=== PATIENT | female | born 2005 | race African-American/Black ===

== ENCOUNTER 2025-03-15 15:23 | Emergency (ER) | payer OTHER, SELFPAY ==
--- NOTE | ~2025-03-15 | CT_ITS ---
CLINICAL HISTORY: pancreatitis CT ABDOMEN AND PELVIS WITH CONTRAST COMPARISON: None provided. FINDINGS: No CT evidence of acute pancreatitis. Gallbladder is unremarkable. No visible stone. No pericholecystic inflammation. Lung bases are unremarkable. Focal fatty infiltration is noted adjacent to the falciform ligament of the liver. No focal liver lesion. Stomach is mildly distended with enteric contents and some gas. Spleen and adrenal glands are unremarkable. Both kidneys are unremarkable. No hydronephrosis or obstructing stone. Urinary bladder is unremarkable. Uterus and adnexa are grossly unremarkable. Small follicles are suspected within the left ovary. Abdominal aorta is normal in caliber without evidence of an aneurysm or dissection. No evidence of a bowel obstruction. No free air. No pericolonic inflammation. Appendix is visualized and there is no evidence of acute appendicitis. Fluid and nonspecific air-fluid levels are noted within nonobstructed portions of mid to distal small bowel and the proximal portions of the colon. No lymphadenopathy. No evidence of a bowel containing hernia. The bone windows demonstrate no acute abnormalities. IMPRESSION: 1. No CT evidence of acute pancreatitis. 2. No evidence of a bowel obstruction or free air. No pericolonic inflammation. No evidence of acute appendicitis. 3. Fluid and nonspecific air-fluid levels are noted within nonobstructed portions of mid to distal small bowel, and the proximal portions of the colon. This can be correlated with patient history/symptoms and laboratory values. 4. Additional findings are detailed above. This document has been electronically signed by: Conrado Strickland M.D. on 03/16/2025 00:08:03
[2025-03-15 16:04] VITALS: BP 104/71; PULSE 96; RESP 18; TEMP 37.3; O2SAT 99; BMI 22.1
--- NOTE | 2025-03-15 16:06 | ED_ITS ---
HPI - Abdominal Pain General Chief Complaint: General Medical Stated Complaint: vomiting,diarrhea/has holter monitor on Time Seen by Provider: 03/15/25 20:48 Source: patient Limitations: no limitations History of Present Illness ED Provider: Tracey Patton PA-C HPI narrative: 19-year-old female presents with nausea vomiting diarrhea x1 day. Associated abdominal cramping. Denies fever, sick contacts with similar symptoms, recent travel, recent hospitalization or use of antibiotics. Patient states she has also been having breakthrough vaginal bleeding, she just started Depo-Provera on January 19. She also states she had a positive test at home. Related Data Previous Rx's ?Medication ?Instructions ?Recorded dicyclomine 20 mg tablet 20 mg PO BID PRN diarrhea #7 tabs 03/16/25 ketorolac 10 mg tablet 10 mg PO Q6H PRN pain #20 ta bs 03/16/25 ondansetron 4 mg disintegrating 4 mg PO Q8H PRN nausea and 03/16/25 tablet vomiting #10 tabs Allergies Allergy/AdvReac Type Severity Reaction Status Date / Time No Known Allergies Allergy Verified 03/15/25 16:07 Review of Systems Review of Systems Yes all other systems are reviewed and are negative Constitutional: Denies fatigue and Denies fever(s) Cardiovascular: Denies chest pain and Denies dyspnea Respiratory: Denies cough and Denies dyspnea Gastrointestinal: Reports abdominal pain, Reports GI cramping, Reports diarrhea, Reports nausea and Reports vomiting Genitourinary: Denies dysuria, Denies pelvic pain and Denies vaginal discharge Endocrine: Denies fatigue PMFSH Past Medical History Attestation statement: The following information was validated with the patient. Physical Exam ED Vital Signs: Vital Signs - 24 hr 03/15/25 16:04 03/15/25 20:31 03/15/25 23:01 Temperature 99.2 F 98.6 F 98.4 F Pulse Rate 96 94 85 Respiratory Rate 18 16 14 Blood Pressure 104/71 104/69 101/60 Pulse Oximetry 99 100 98 Oxygen Delivery Method Room Air Room Air Room Air 03/16/25 01:34 03/16/25 03:03 Temperature 98.6 F 98.6 F Pulse Rate 90 90 Respiratory Rate 14 14 Blood Pressure 97/59 L 97/59 L Pulse Oximetry 99 99 Oxygen Delivery Method Room Air Room Air BMI result Body Mass Index 22.1 Const Other: Alert well-appearing Orientation/consciousness: patient oriented x3 Resp Effort & Inspection: normal respiratory effort Cardio Other: Normal peripheral perfusion GI Other: Abdomen is soft, nondistended, mild to moderate tenderness across lower abdomen, General: Yes no CVA tenderness Back/Spine/Pelvis Back: no CVA tenderness Skin Other: Warm dry no rash Neuro General: patient oriented x3, gait normal, no focal motor deficits and CN's II- XI intact bilaterally Psych Other: Cooperative Course Course Course Narrative: This is an RME: Additional HPI, ROS, PE not included below will be deferred to primary provider. RME assessment and note performed by: Rubia Prado PA-C This is a [id number] who presents to the ER with a complaint of nausea, vomiting, diarrhea, abdominal pain, vaginal bleeding and rapid heart rate. Had depo shot in January, positive test, however repeat was negative. Plan: Labs, EKG, UA, further ER eval needed Medical Decision Making Medical Decision Making MDM Narrative: 19-year-old female presents with nausea vomiting diarrhea x1 day. Associated abdominal cramping. Denies fever, sick contacts with similar symptoms, recent travel, recent hospitalization or use of antibiotics. Patient states she has also been having breakthrough vaginal bleeding, she just started Depo-Provera on January 19. She also states she had a positive test at home. No chronic issues History: Per patient I have considered the following differential diagnoses: Diverticulitis, viral gastroenteritis, C diff, traveler's diarrhea, ectopic, breakthrough vaginal bleeding Plan: In regard to the patient's GI related complaints, this is likely viral, she just developed symptoms yesterday, her abdominal exam was benign, and she has no risk factors for C diff or traveler's diarrhea. Her labs incidentally showed she has pancreatitis, we will order a CT scan to verify. In regard to the vaginal bleeding, I explained to the patient she can have breakthrough vaginal bleeding on Depo-Provera, she is not , and her H&H are stable. I have independently reviewed the following tests: Labs: No leukocytosis, not anemic, no electrolyte abnormality, not , urine not infected CT abdomen and pelvis:IMPRESSION: 1. No CT evidence of acute pancreatitis. 2. No evidence of a bowel obstruction or free air. No pericolonic inflammation. No evidence of acute appendicitis. 3. Fluid and nonspecific air-fluid levels are noted within nonobstructed portions of mid to distal small bowel, and the proximal portions of the colon. This can be correlated with patient history/symptoms and laboratory values. 4. Additional findings are detailed above. Differential Diagnosis Differential Diagnoses: The differential diagnosis associated with the presentation includes See medical decision making Admission/Observation Consideration of admission/observation: Escalation of care including admission/observation considered Not applicable Lab Data MDM Lab Attestation statement: I reviewed the patient's lab results. 03/15/25 17:01 03/15/25 17:01 Labs: Lab Results 03/15/25 Range/Units 17:01 WBC 8.3 (4.8-10.8) X10*3/uL RBC 5.46 (4.20-5.50) X10*6/uL Hgb 14.3 (12.0-16.0) g/dl Hct 43.7 (37.0-47.0) % MCV 80.0 (80.0-98.0) fL MCH 26.2 L (27.0-33.0) pg MCHC 32.7 (31.0-35.0) g/dl RDW 12.9 (11.0-16.0) % Plt Count 387 (160-400) X10*3/uL MPV 9.3 L (9.4-12.3) fL Immature Gran % (Auto) 0.2 (0.0-0.4) % Neut % (Auto) 66.6 (45-73) % Lymph % (Auto) 22.7 (20-40) % [place] % (Auto) 6.7 (2-11) % Eos % (Auto) 2.7 (0-4) % Baso % (Auto) 1.1 (0-2) % Lymph # (Auto) 1.9 (1.2-4.9) X10*3/uL [place] # (Auto) 0.6 (0.1-1.2) X10*3/uL Eos # (Auto) 0.2 (0.0-0.4) X10*3/uL Baso # (Auto) 0.1 (0.0-0.2) X10*3/uL Abs Immat Gran (auto) 0.02 (0.00-0.03) X10*3/uL Absolute Neuts (auto) 5.5 (2.0-8.3) x10*3/uL Absolute Nucleated RBC 0.000 (0.0-0.012) X10*3/uL Nucleated RBC % (auto) 0.0 (0.0-0.2) /100WBC Sodium 144 (135-145) mmol/L Potassium 3.9 (3.3-5.1) mmol/L Chloride 110 H (96-108) mmol/L Carbon Dioxide 27 (22-29) mmol/L Anion Gap 11 L (12-20) BUN 8 L (9-16) mg/dL Creatinine 0.80 (0.5-1.4) mg/dL Estim Creat Clear Calc 76.5 Estimated GFR > 60 Random Glucose 60 (60-115) mg/dL Calcium 9.9 (8.4-10.2) mg/dL Magnesium 2.3 (1.6-2.6) mg/dL Total Bilirubin 0.4 (0.0-1.0) mg/dL Direct Bilirubin 0.1 (0.0-0.5) mg/dL AST 20 (5-31) U/L ALT 23 (0-31) U/L Alkaline Phosphatase 58 (39-117) U/L Total Protein 7.7 (6.5-8.0) g/dL Albumin 5.1 H (3.5-5.0) g/dL Lipase 90 H (8-78) U/L Beta HCG, Quant < 2 mIU/mL Urine Color Yellow Urine Appearance Clear Urine pH 5.0 (5.0-9.0) Ur Specific Dameron 1.025 (1.005-1.025) Urine Protein Negative (Neg-Trace) mg/dL Urine Glucose (UA) Negative (Negative) mg/dL Urine Ketones Trace (Negative) mg/dL Urine Blood Small (1+) H (Negative) Urine Nitrite Negative (Negative) Ur Leukocyte Esterase Negative (Negative) Urine RBC 0-2 (0-2) /HPF Urine WBC 0-5 (0-5) /HPF Ur Squamous Epith Cells 0-2 (0-2) /HPF Urine Bacteria None Seen (None Seen) Hyaline Casts 0-2 (0-2) /LPF Ethyl Alcohol < 10 mg/dL Radiology Impression Discussion of test interpretation with radiology: I have reviewed the radiologist's reading. Medications Administered Discontinued Medications Generic Name Dose Route Start Last Admin Trade Name Freq PRN Reason Stop Dose Admin Dicyclomine HCl 20 mg 03/16/25 01:40 03/16/25 01:48 Dicyclomine Hcl 10 Mg Capsule PO 03/16/25 01:41 20 mg ONCE ONE Administration Sodium Chloride 1,000 mls @ 999 mls/hr 03/15/25 21:00 03/15/25 22:22 Ns IV 03/15/25 22:00 Infused .Q1H1M EMLANIE Infusion Iohexol 85 ml 03/15/25 22:19 03/15/25 22:20 Iohexol 350 Mg/Ml 100 Ml Infus..Btl IV 03/15/25 22:20 85 ml ONCE ONE Administration Ketorolac Tromethamine 15 mg 03/16/25 02:11 03/16/25 02:19 Ketorolac Tromethamine 15 Mg/Ml Vial IVPUSH 03/16/25 02:12 15 mg ONCE ONE Administration Midazolam HCl 3 mg 03/15/25 20:59 03/15/25 21:07 Midazolam Hcl 2 Mg/2 Ml Vial IVPUSH 03/15/25 21:00 3 mg ONCE ONE Administration Ondansetron HCl 4 mg 03/16/25 02:12 03/16/25 02:19 Ondansetron Hcl 4 Mg/2 Ml Vial IVPUSH 03/16/25 02:13 4 mg ONCE ONE Administration Discharge Plan Discharge Clinical Impression: Viral gastroenteritis Patient Disposition: Home, Self-Care Instructions: Gastroenteritis (ED) Additional Instructions: All of your screening labs were normal, you were not . There were no acute findings on the CT scan. Your symptoms are likely secondary to viral gastroenteritis. See home care instructions. Viruses or self-limiting. Uses Zofran as needed for nausea. Use the ketorolac as needed for abdominal discomfort. Use the dicyclomine as needed for diarrhea. Follow up with your primary care provider as needed. Prescriptions: New ketorolac 10 mg tablet 10 mg PO Q6H PRN (Reason: pain) Qty: 20 0RF Rx Instructions: maximum total duration of 5 days from all oral, intranasal, or parenteral formulations. The patient received an IV dose of Toradol here in the emergency room ondansetron 4 mg tablet,disintegrating 4 mg PO Q8H PRN (Reason: nausea and vomiting) Qty: 10 0RF dicyclomine 20 mg tablet 20 mg PO BID PRN (Reason: diarrhea) Qty: 7 0RF Stand Alone Forms: Work/School Release Interventions: ED Discharge Assessment Last Done: 03/16/25 03:03 Discharge Date/Time: 03/16/25 03:04 Print Language: Luxembourgish
--- NOTE | 2025-03-15 16:07 | ECG_ITS ---
Test Reason : RAPID HEART RATE Blood Pressure : */* mmHG Vent. Rate : 87 BPM Atrial Rate : 87 BPM P-R Int : 172 ms QRS Dur : 74 ms QT Int : 356 ms P-R-T Axes : 69 61 51 degrees QTcB Int : 428 ms Normal sinus rhythm with sinus arrhythmia Low voltage QRS Nonspecific ST and T wave abnormality Borderline ECG No previous ECGs available Referred By: Rubia Prado Electronically Signed By: JABIER WILDER
[2025-03-15 17:04] LABS: MANUAL DIFF FLAG NO
[2025-03-15 17:07] LABS: Appearance Urine Clear; Glucose Urine UA Negative (Negative); PH 5.0 (5.0-9.0); Specific Gravity - Urine 1.025 (1.005-1.025); UMIC TRIGGER UACC YES
[2025-03-15 17:11] LABS: Hematocrit 43.7 % (37.0-47.0); Hemoglobin 14.3 g/dl (12.0-16.0); Imm Gran Abs Auto 0.02 X10*3/uL (0.00-0.03); Imm Gran Pct Auto 0.2 % (0.0-0.4); Lymphocytes Absolute Auto 1.9 X10*3/uL (1.2-4.9); Mean Corpuscular HGB Conc 32.7 g/dl (31.0-35.0); Mean Corpuscular Hemoglobin 26.2 pg (27.0-33.0); Mean Corpuscular Volume 80.0 fL (80.0-98.0); NRBC Abs Auto 0.000 X10*3/uL (0.0-0.012); NRBC Pct Auto 0.0 /100WBC (0.0-0.2); Platelet Count 387 X10*3/uL (160-400); Red Blood Count 5.46 X10*6/uL (4.20-5.50); White Blood Count 8.3 X10*3/uL (4.8-10.8)
--- OUTSIDE RECORDS SUMMARY | 2025-03-15 17:23 | XMS_ITS | Clinical Summary ---
Author Organization [facility] ity Address [address] [place] [address] Care Team Providers Care [employer] Equipment Operator Name Role Phone Edwin Alcantara MD Primary Care Provider [phone] Family History Medical History Relation Name Comments ADD / ADHD Father Relation Name Status Comments Father Social History Tobacco Use Types Packs/Day Years Used Date Smoking Tobacco: Never Smokeless Tobacco: Never Alcohol Use Standard Drinks/Week Comments Not Asked 0 (1 standard drink = 0.6 oz pur e alcohol) Comments Unknown Sex and Gender Information Value Date Recorded Sex Assigned at Not on file Legal Sex Female 5:20 AM EST Gender Identity Not on file Sexual Orientation Not on file Obstetrics History Last Filed Vital Signs Vital Sign Reading Time Taken Comments Blood Pressure 110/62 05/28/2021 11:23 AM EST Pulse 60 05/28/2021 11:23 AM EST Temperature - - Respiratory Rate - - Oxygen Saturation - - Inhaled Oxygen Concentration - - Weight 75.8 kg (167 lb) 05/28/2021 11:23 AM EST Height 146 cm (4' 9.48 ) 09/27/2020 3:23 PM EDT Body Mass Index - - Plan of Treatment Health Maintenance Due Date Last Done Comments Gonorrhea/Chlamydia Screening 2004 Meningococcal B Vaccine (1 of 2 - Standard) 2020 Annual Well Child Visit (3-21 years old) 06/06/2022 09/27/2020, 06/07/2019, 04/20/2018, Additional history exists HIV Screening 06/06/2022 Hepatitis C Screening 06/06/2022 Social Influencers of Health Screening 06/06/2022 Depression Screening 06/28/2024 COVID-19 Vaccine ( season) 2025 Influenza Vaccine (#1) 2025 , 06/07/2019, 04/20/2018, Additional history exists DTaP,Tdap,and Td Vaccines (7 - Td or Tdap) 03/22/2027 03/22/2017, 10/19/2008, 04/23/2006, Additional history exists RSV Immunization Adult Patients (1 - 1-dose 75+ series) 10/18/2079 Hepatitis B Vaccines Completed 04/30/2005, 2004, 2004 Pneumococcal Vaccine: Pediatrics (0 to 5 Years) and At-Risk Patients (6 to 49 Years) Aged Out 04/30/2005, 02/20/2005, 2004 No longer eligible based on patient's age to complete this topic HIB Vaccines Completed 12/04/2005, 08/2004, 02/20/2005, Additional history exists Hepatitis A Vaccines Completed 03/28/2008, 02/25/20 07 IPV Vaccines Completed 10/19/2008, 02/2006, 04/30/2005, Additional history exists MMR Vaccines Completed 10/19/2008, 02/2006, 10/22/2005 Varicella Vaccines Completed 10/19/2008, 10/22/2005 HPV Vaccines Completed 04/20/2018, 04/20/2017 Meningococcal ACWY Vaccine Completed 12/23/2020, RSV Immunization Patients Under 20 months Aged Out No longer eligible based on patient's age to complete this topic Care Teams [employer] Equipment Operator Relationship Specialty Start Date End Date Edwin Alcantara MD [address] [place] [address] [place] [id number] PCP - General 11/10/22
[2025-03-15 17:26] LABS: Alanine Aminotransferase 23 U/L (0-31); Albumin Level 5.1 g/dL (3.5-5.0); Alkaline Phosphatase 58 U/L (39-117); Anion Gap 11 (12-20); Aspartate Amino Transferase 20 U/L (5-31); Blood Urea Nitrogen 8 mg/dL (9-16); Calcium 9.9 mg/dL (8.4-10.2); Carbon Dioxide 27 mmol/L (22-29); Chloride 110 mmol/L (96-108); Creatinine Clr Calc Pharmacy 76.5; Estimated Glomerular Filt Rate > 60; Magnesium 2.3 mg/dL (1.6-2.6); Potassium 3.9 mmol/L (3.3-5.1); Sodium 144 mmol/L (135-145); Total Protein 7.7 g/dL (6.5-8.0)
[2025-03-15 20:31] VITALS: BP 104/69; PULSE 94; RESP 16; TEMP 37; O2SAT 100
[2025-03-15 20:40] LABS: Lipase 90 U/L (8-78)
[2025-03-15] MEDS: iohexoL 350 MG/ML 100 ML INFUS..BTL 85 ML IV (22:20)
[2025-03-15 23:01] VITALS: BP 101/60; PULSE 85; RESP 14; TEMP 36.9; O2SAT 98
[2025-03-16 01:34] VITALS: BP 97/59; PULSE 90; RESP 14; TEMP 37; O2SAT 99
[2025-03-16 03:03] VITALS: BP 97/59; PULSE 90; RESP 14; TEMP 37; O2SAT 99
== END 2025-03-16 03:04 | disposition home or self-care (01) ==
PROVIDERS: Physician Assistant Medical; Emergency Provider Student in an Organized Health Care Education/Training Program
DX: A08.4 Viral intestinal infection, unspecified (principal); R11.2 Nausea with vomiting, unspecified; R19.7 Diarrhea, unspecified; Z79.899 Other long term (current) drug therapy
CPT/HCPCS: 36415; 74177; 80048; 80076; 80307; 81001; 83690; 83735; 84702; 85025; 93005; 96361; 96374; 96375; 99285; J1885; J2250; J2405; Q9967

== ENCOUNTER → 2025-03-15 16:07 | Outpatient (BNV) | payer MEDICAID, SELFPAY | PROVIDERS: Emergency Provider Student in an Organized Health Care Education/Training Program; Visit Provider Internal Medicine | DX: I49.9 Cardiac arrhythmia, unspecified (principal) | CPT/HCPCS: 93010 ==

== ENCOUNTER → 2025-03-15 20:59 | Outpatient (BNV) | payer MEDICAID, SELFPAY | PROVIDERS: Emergency Provider Student in an Organized Health Care Education/Training Program; Visit Provider Radiology Diagnostic Radiology | DX: K85.90 Acute pancreatitis without necrosis or infection, unspecified (principal) | CPT/HCPCS: 74177 ==